=== PATIENT | female | born 1970 ===

== ENCOUNTER 2023-04-19 12:09 | Emergency (ER) | payer OTHER, SELFPAY ==
[2023-04-19 12:47] VITALS: BP 148/92; PULSE 75; RESP 18; TEMP 36; O2SAT 98; BMI 37.8
--- NOTE | 2023-04-19 12:49 | ED.GENADULT ---
HPI - General Adult General Chief complaint: Upper Respiratory Symptoms Stated complaint: Cough/SOB/Chest tightness Time Seen by Provider: 04/19/23 13:06 Source: patient Mode of arrival: ambulatory Limitations: no limitations History of Present Illness HPI narrative: Patient is a 52-year-old female with history of asthma presenting to the emergency department with nonproductive cough since , nasal congestion, bilateral ear pain, burning sensation in chest with coughing. Also reports frontal/sinus headache. Denies worsened onset, denies worst of life. Denies any blurred vision, double vision or other visual changes. Denies any chest pain at rest. Denies fevers. Denies abdominal pain, nausea, vomiting, diarrhea. Has been using prescribed albuterol, [id number]-audyidt cold medication as well as tea with honey and steam for her symptoms. Denies sick contacts. MD complaint: Cough, shortness of breath Onset (ago): day(s) Location: chest Radiation: non-radiation Severity: moderate Quality: burning (Only walk coughing) Pain Consistency: intermittent Exacerbating factors: rest Associated symptoms: cough and headaches Treatments prior to arrival: other (Albuterol, OTC cold medicine) Related Data Previous Rx's Medication Instructions Recorded benzonatate 100 mg capsule 100 mg PO TID PRN cough #14 caps 04/19/23 Allergies Allergy/AdvReac Type Severity Reaction Status Date / Time No Known Allergies Allergy Verified 04/19/23 12:47 Review of Systems Review of Systems: As per HPI. Yes all other systems are reviewed and are negative Constitutional: Constitutional: Reports as per HPI [facility] Social History Social History Advance Directives: No Advance Directives Information Provided: No Physical Exam ED Vital Signs: Vital Signs - 24 hr 04/19/23 12:47 Temperature 96.8 F Pulse Rate 75 Respiratory Rate 18 Blood Pressure 148/92 H Pulse Oximetry 98 Oxygen Delivery Method Room Air BMI result Body Mass Index 37.8 Vital signs have been reviewed and appear to be correct. Blood pressure mildly elevated. Heart rate normal. Respiratory rate normal. Temperature normal. Oxygen saturation normal. Const General: cooperative, healthy appearing and no acute distress Orientation/consciousness: oriented to person, oriented to place, oriented to time and patient oriented x3 Limitations: no limitations HENMT Head: Yes normocephalic and Yes atraumatic Ears: external ears normal, TM's normal bilaterally, EAC's normal and mastoids normal General nose exam: Normal external nose present Face and sinus: Yes face symmetric Mouth: Normal oral and palatal mucosa present, oropharynx normal and moist mucous membranes Throat: Yes posterior oropharynx normal, Yes uvula midline and No uvular edema Eyes Pupils: Equal, round and reactive pupils present Neck Neck: Yes normal visual inspection and Yes supple Chest Chest palpation & inspection: normal inspection of the chest and normal palpation of entire chest wall Resp Effort & Inspection: normal respiratory effort and able to speak in complete sentences Auscultation: clear to auscultation bilaterally and no wheezes Cardio Rate: regular rate Rhythm: regular rhythm Heart sounds: S1 normal heart sound present and S2 normal heart sound present GI Palpation (GI): Soft to palpation and nontender Auscultation: normoactive bowel sounds General: Yes no CVA tenderness Back/Spine/Pelvis Back: no CVA tenderness Skin General skin exam: elasticity normal and turgor normal Neuro General: oriented to person, oriented to place, oriented to time, patient oriented x3, moves all extremities, no focal motor deficits and CN's II-XI intact bilaterally Cranial nerves: Yes Equal, round and reactive pupils present Cognition (Neuro): normal cognition Extrem General: Yes full ROM, Yes no pedal edema and Yes no calf tenderness Psych Mental Status: mental status grossly normal Affect: normal affect Thought process: Normal thought process present Course Course Course Narrative: RME: 52 yold female presents to the ED for coughing, runny nose, ear pain for a couple of days. Chest xray, covid, and influenza swab ordered Medical Decision Making Medical Decision Making MDM Narrative: Patient is a 52-year-old female with history of asthma presenting to the emergency department with nonproductive cough since , nasal congestion, bilateral ear pain, burning sensation in chest with coughing. On exam patient is awake, A+Ox3, VS WNL, afebrile, nontoxic appearing, normal neurological exam without focal deficits, LS CTA throughout. Given reported symptoms and physical exam findings, differential includes viral illness, asthma exacerbation, bronchitis, pneumonia. Covid, flu negative. X-ray without any acute findings. Unable to interpret CXR independently as PACS system down at this time. Symptoms likely related to viral upper respiratory infection. Will prescribe benzonatate as needed for cough. Instructed patient to follow-up with PCP. All results discussed and all questions answered. Return precautions discussed at bedside. Patient and verbalized understanding of and agreement with plan. Differential Diagnosis Differential Diagnoses: The differential diagnosis associated with the presentation includes As above. Lab Data MDM Lab Attestation statement: I reviewed the patient's lab results. Covid and flu negative Labs: Lab Results 04/19/23 04/19/23 Range/Units 13:03 13:03 COVID-19 ([facility]) Negative (Negative) COVID-19 Clin Com See Note Influenza Type A ([facility]) Negative (Negative) Influenza Type B ([facility]) Negative (Negative) Influenza A & B Note See Note Independent Interpretation Interpretation: Unable to independently interpret as PACS system down. Radiology Impression Discussion of test interpretation with radiology: I have reviewed the radiologist's reading. Radiologist Impression: No acute findings. Independent Historian Clinical information obtained from an independent historian. History obtained from or confirmed by: Spouse External Record Review External record reviewed: Inpatient record, Office record and Outpatient record Prescription Management I considered prescription management with: Other (benzonatate) Chronic Conditions Patient?s care impacted by: Other (asthma) Discharge Plan Discharge Clinical Impression: Viral upper respiratory infection Patient Disposition: Home, Self-Care Instructions: Upper Respiratory Infection (DC), Viral Syndrome (ED) Additional Instructions: You were evaluated in the emergency department today for cough. Your chest x-ray did not show evidence of a pneumonia. Your cough is most likely due to a viral illness which will improve on its own with rest and fluids. You are being prescribed benzonatate which you may take up to every 8 hours as needed for cough. You can take [id number] medications such as dextromethorphan to help manage your symptoms. Please schedule an appointment for follow-up with your primary care physician within 2 days. Return to the emergency department if you experience worsening cough, fever 100.4? F or greater, recurrent vomiting, chest pain, shortness of breath, or any other concerning symptoms. Prescriptions: New benzonatate 100 mg capsule 100 mg PO TID PRN (Reason: cough) Qty: 14 0RF Interventions: ED Discharge Assessment Last Done: 04/19/23 15:01 Discharge Date/Time: 04/19/23 15:02
== END 2023-04-19 15:02 | disposition home or self-care (01) ==
PROVIDERS: Emergency Provider Emergency Medicine Emergency Medical Services
DX: J06.9 Acute upper respiratory infection, unspecified (principal); R06.02 Shortness of breath; R05.9 Cough, unspecified; J45.909 Unspecified asthma, uncomplicated; Z20.822 Contact with and (suspected) exposure to COVID-19
CPT/HCPCS: 71045; 87502; 87635; 99282; 99283